=== PATIENT | female | born 1970 | race Two or more races ===

== ENCOUNTER 2018-09-11 07:25 | Inpatient (IN) | payer OTHER ==
[2018-09-11] MEDS: DEXTROSE 5%-LACTATED RINGERS 1,000 ML IV SCH ×2 (08:30→18:15)
[2018-09-11 08:35] VITALS: BMI 31.1
[2018-09-11] MEDS ORDERED: DINOPROSTONE 10 MG VAGINAL SUPPOSITORY VG ONE ×2 (08:46→09:00)
--- NOTE | 2018-09-11 08:53 | HP ---
Past Medical History - Primary Care Physician PCP:: Maico Celis - Admission Chief Complaint: 47yo P1 with at EGA 39w6d admitted for labor indxn. History of Present Illness: complicated by AMA IVF History Source: Patient, Medical Record Limitations to Obtaining History: No Limitations - Past Medical History CAD SPECIALIST: No: Alzheimer's, CVA, Dementia, Migraine, Multiple Sclerosis, Peripheral Neuropathy, Parkinson's, Seizure, Syncope, TIA, Vertigo, Other Cardiovascular: No: AFIB, Aneurysm, Aortic Insufficiency, Aortic Stenosis, CAD, CHF, Deep Vein Thrombosis, HTN, Hyperlipdemia, OK, Mitral Insufficiency, Mitral Stenosis, Murmur, Pulmonary Hypertension, Other Pulmonary: Yes: Other (emphysema) Gastrointestinal: No: Ascites, Cancer, Constipation, Crohn's Disease, Diverticulitis, Diverticulosis, Esophageal Varices, Gastritis, GERD, GI Bleed, Hemorrhoids, Hiatal Hernia, Inflamatory Bowel Disease, Irritable Bowel Disease, Pancreatitis, Peptic Ulcer Disease, Ulcerative Colitis, Other Hepatobiliary: No: Cirrhosis, Cholelithiasis, Cholecystitis, Choledocholithiasis , Hepatitis A, Hepatitis B, Hepatitis C, Other Renal/: No: Renal Failure, Renal Inusuff, BPH, Cancer, Hematuria, Hemodialysis , Neurogenic Bladder, Renal Calculi, UTI, Other Reproductive: No: Ectopic , Endometriosis, Fibroids, PID, Polycystic Ovary Syndrome, Postmenopausal, Other ...: 3 ...Para: 1 ...Term: 1 () ...: 0 ...Spon : 1 ...Induced : 0 ...EDC by Jarono: 09/12/18 Heme/Onc: No: Anemia, B12 Deficiency, Bleeding Disorder, Cancer, Current Chemotherapy, Current Radiation Therapy, Hemochromatosis, Hypercoaguable State, Myeloproliferative Synd, Sickle Cell Disease, Sickle Cell Trait, Thrombocytopenia, Other Infectious Disease: No: AIDS, C-Diff, Herpes Zoster, HIV, MRSA, STD's, Tuberculosis, VREF, Other Psych: No: Addictions, Anxiety, Bipolar, Depression, Panic, Psychosis, Schizophrenia, Other Musculoskeletal: No: Bursitis, Chronic low back pain, Hemiparesis, Hemiplegia, Osteoarthritis, Paraplegia, Other Rheumatology: No: Fibromyalgia, Gout, Lupus, Rheumatoid Arthritis, Sarcoidosis, Vasculitis, Other ENT: No: Allergic Rhinitis, Sinusitis, Other Endocrine: Yes: Other (elevated cholesterol) - Past Surgical History Past Surgical History: Yes: None Hx Myomectomy: No Hx Transabdominal Cerclage: No - Smoking History Smoking history: Former smoker Have you smoked in the past 12 months: No - Alcohol/Substance Use Hx Alcohol Use: No Home Medications - Allergies Allergies/Adverse Reactions: Allergies Allergy/AdvReac Type Severity Reaction Status Date / Time No Known Allergies Allergy Verified 09/11/18 07:57 - Home Medications Home Medications: Ambulatory Orders Vits96/Iron Fum/Folic [ Tablet] 1 each PO DAILY 09/11/18 Family Disease History - Family Disease History Family Disease History: Heart Disease: Brother, CA: Sister (cervical), Other: Father (HTN, brain tumor, lymphoma), Mother (HTN) Review of Systems Findings/Remarks: Well appearing - Review of Systems Constitutional: reports: No Symptoms Eyes: reports: No Symptoms HENT: reports: No Symptoms Neck: reports: No Symptoms Cardiovascular: reports: No Symptoms Respiratory: reports: No Symptoms Gastrointestinal: reports: No Symptoms Genitourinary: reports: No Symptoms Breasts: reports: No Symptoms Reported Musculoskeletal: reports: No Symptoms Integumentary: reports: No Symptoms Neurological: reports: No Symptoms Endocrine: reports: No Symptoms Hematology/Lymphatic: reports: No Symptoms Psychiatric: reports: No Symptoms Pain Intensity: 0 Physical Exam - Maternity Vital Signs: Vital Signs Temperature 97.9 F 09/11/18 08:00 Pulse Rate 66 09/11/18 08:00 Respiratory Rate 18 09/11/18 08:00 Blood Pressure 146/87 09/11/18 08:00 O2 Sat by Pulse Oximetry (%) Constitutional: Yes: Well Nourished, No Distress, Calm Eyes: Yes: WNL, Conjunctiva Clear HENT: Yes: WNL, Atraumatic, Normocephalic Neck: Yes: WNL, Supple, Trachea Midline Cardiovascular: Yes: WNL, Regular Rate and Rhythm Lungs: Clear to auscultation, Normal air movement Breast(s): Yes: WNL - Abdominal Exam/OB Fundal Height: 40 Number of Fetuses: Single Presentation: Vertex Contractions: Yes Regularity: Irregular Intensity: Unaware Monitor Mode: External Heart Rate (range): 135 Heart Rate Location: Midline Category: I Accelerations: Uniform Decelerations: None - Vaginal Exam/OB Dilatation (cm): 2 Effacement (%): 50 Amniotic Membrane Status: Intact Presentation: Vertex/Position Station: -3 (Gynecoid pelvimetry, EFW 3200gm) - Physical Exam Musculoskeletal: Yes: WNL Extremities: Yes: WNL Edema: Yes Edema: LLE: Trace, RLE: Trace Integumentary: Yes: WNL Deep Tendon Reflex Grade: Normal +2 ...Motor Strength: WNL Psychiatric: Yes: WNL, Alert, Oriented Hemorrhage Risk Assessment - Risk Factors Medium Risk Factors: Yes: None High Risk Factors: Yes: None Risk Score: 1 Risk Level: Medium Risk Imaging - Results Ultrasound: Report Reviewed Assessment/Plan 47yo P1 with at EGA 39w6d admitted for labor indxn. Pt is not in labor. Fetus with Category I tracing. Adequate gynecoid pelvimetry on exam. We had long discussion re: risks, benefits, and alternatives of labor induction. I explained the options of expectant management awaiting spontaneous labor, induction of labor, and elective section. The risks of uterine tachysystole, distress, uterine rupture, need for emergency C/S, hemorrhage, infection, scarring, etc. were discussed. We also discussed the risks of meconium aspiration, shoulder dystocia, and anesthesia options. The pt requested to proceed with induction. We discussed the alternative methods of induction with Cervidil, Cytotec, Folley ballon, and pitocin. The pt prefers Cervidil followed by pitocin, if needed.
[2018-09-11] MEDS ORDERED: AMPICILLIN - 2 GM in SODIUM CHLORIDE 100 ML IVPB ONE (09:00)
[2018-09-11] MEDS ORDERED: AMPICILLIN SODIUM 2 GM VIAL ONE ×2 (09:05→16:34)
[2018-09-11 09:18] LABS: BASO % 0.5 % (0-2.0); EOS % 2.2 % (0-4.5); HEMATOCRIT 31.4 % (32.4-45.2); HEMOGLOBIN 10.9 GM/dL (10.7-15.3); LYMPH % 17.8 % (8-40); MCH 31.5 pg (25.7-33.7); MCHC 34.5 g/dl (32.0-36.0); MEAN CELL VOLUME 91.2 fl (80-96); MEAN PLT VOLUME 8.5 fl (7.5-11.1); MONO % 5.8 % (3.8-10.2); NEUT % 73.7 % (42.8-82.8); PLATELET COUNT 223 K/MM3 (134-434); RBC 3.44 M/mm3 (3.60-5.2); RDW 13.8 % (11.6-15.6); WHITE BLOOD COUNT 9.3 K/mm3 (4.0-10.0)
[2018-09-11 09:29] LABS: INR 0.93 (0.83-1.09)
[2018-09-11 09:32] LABS: ACTIVATED PTT 25.7 SECONDS (25.2-36.5)
[2018-09-11 09:49] LABS: GAMMA GLUTAMYL TRANSPEPTIDASE 13 U/L (5-85); SGOT/AST 13 U/L (15-37); SGPT/ALT 14 U/L (13-61)
[2018-09-11 09:52] LABS: BLOOD UREA NITROGEN 8.8 mg/dL (7-18); CREATININE 0.8 mg/dL (0.55-1.3); URIC ACID 5.5 mg/dL (2.6-7.2)
[2018-09-11 11:48] LABS: HYALINE CASTS 1 /lpf (0-8); PH,URINE 7.5 (5.0-8.0); URINE APPEARANCE CLEAR; URINE BACTERIA 331.8 /hpf (NEGATIVE); URINE BILIRUBIN NEGATIVE (NEGATIVE); URINE COLOR YELLOW; URINE GLUCOSE (UA) NEGATIVE (NEGATIVE); URINE KETONE NEGATIVE (NEGATIVE); URINE LEUK ESTERASE 2+ (NEGATIVE); URINE NITRITE NEGATIVE (NEGATIVE); URINE PROTEIN NEGATIVE (NEGATIVE); URINE RBC 1 /hpf (0-4); URINE UROBILINOGEN 0.2 mg/dL (0.2-1.0); URINE WBC 5 /hpf (0-5)
[2018-09-11] MEDS ORDERED: AMPICILLIN SODIUM 1 GM VIAL ONE ×2 (12:07→20:44)
[2018-09-11] MEDS: AMPICILLIN - 1 GM in SODIUM CHLORIDE 100 ML IVPB SCH ×3 (13:00→20:45)
[2018-09-11] MEDS ORDERED: BUTORPHANOL TARTRATE 1 MG/ML VIAL IVPB ONE (16:13)
[2018-09-11] MEDS ORDERED: PROMETHAZINE HCL 25 MG/1 ML VIAL IVPB ONE (16:13)
--- NOTE | 2018-09-11 16:40 | PN ---
Ante-Partal Exam - Subjective Subjective: Pt states contractions back to back but not picked up on monitor. Vital Signs: Vital Signs Temperature 98.1 F 09/11/18 13:16 Pulse Rate 75 09/11/18 16:00 Respiratory Rate 20 09/11/18 16:00 Blood Pressure 151/75 09/11/18 16:00 O2 Sat by Pulse Oximetry (%) Bleeding: No Headache: No Visual changes: No Right upper quadrant pain: No Pain (scale 1-10): 7 - Contractions Contractions: Yes Regularity: Irregular Intensity: Mild/Mod Monitor Mode: External - Exam during Labor Heart Rate: 135 Variability: Moderate Heart Rate Location: Midline Category: I Monitor Accelerations: Present Monitor Decelerations: None Exam: Vaginal Dilatation (cm): 3 Effacement (%): 50 Amniotic Membrane Status: Intact Presentation: Vertex Station: -3 - Intrapartum Hemorrhage Risk Medium Risk Factors: None High Risk Factors: None Risk Score: 0 Risk Level: Low Risk - Assessment/Plan Assessment/Plan: Pt with frequent contractions on Cervidil that were not picked up on monitor. Cervix dilated to 3cm and Cervidil was removed at 4pm. Fetus with Category I tracing. Plan to monitor and AROM.
--- NOTE | 2018-09-11 17:50 | PN ---
Ante-Partal Exam - Subjective Subjective: Contractions have slowed down. Vital Signs: Vital Signs Temperature 98.3 F 09/11/18 17:00 Pulse Rate 58 L 09/11/18 17:00 Respiratory Rate 20 09/11/18 17:00 Blood Pressure 133/82 09/11/18 17:00 O2 Sat by Pulse Oximetry (%) Bleeding: No Headache: No Visual changes: No Right upper quadrant pain: No Pain (scale 1-10): 8 - Contractions Contractions: Yes Regularity: Irregular Intensity: Mild/Mod Monitor Mode: External - Exam during Labor Heart Rate: 135 Variability: Moderate Heart Rate Location: Midline Category: I Monitor Accelerations: Present Monitor Decelerations: None Exam: Vaginal Dilatation (cm): 3 Effacement (%): 50 Amniotic Membrane Status: Ruptured (AROM) Amniotic Fluid: Clear Presentation: Vertex Station: -3 - Intrapartum Hemorrhage Risk Medium Risk Factors: None High Risk Factors: None Risk Score: 0 Risk Level: Low Risk - Assessment/Plan Assessment/Plan: Fetus with Category I tracing. Labor in latent phase. AROM done. Plan to start pitocin
[2018-09-11] MEDS ORDERED: BUTORPHANOL TARTRATE 1 MG/ML VIAL ONE ×2 (17:52)
[2018-09-11] MEDS ORDERED: OXYTOCIN 20 UNITS in 0.9% NS 20 UNIT/1,000 ML INFUS.BAG IV ONE ×2 (17:53→20:29)
[2018-09-11] MEDS ORDERED: PROMETHAZINE HCL 25 MG/1 ML VIAL ONE (17:53)
[2018-09-11] MEDS ORDERED: OXYTOCIN 30 UNITS in 0.9% NS 30 UNIT/500 ML INFUS.BAG IVPB SCH (18:00)
--- NOTE | 2018-09-11 18:55 | PN ---
Ante-Partal Exam - Subjective Subjective: BP 177/75, prior BP also elevated. Vital Signs: Vital Signs Temperature 98.3 F 09/11/18 17:00 Pulse Rate 58 L 09/11/18 17:00 Respiratory Rate 20 09/11/18 17:00 Blood Pressure 146/74 09/11/18 18:31 O2 Sat by Pulse Oximetry (%) Bleeding: No Headache: No Visual changes: No Right upper quadrant pain: No Pain (scale 1-10): 7 - Contractions Contractions: Yes Regularity: Irregular Intensity: Mild/Mod Monitor Mode: External - Exam during Labor Heart Rate: 135 Variability: Absent Heart Rate Location: Midline Category: I Monitor Accelerations: Absent (s/p Stadol) Monitor Decelerations: None Amniotic Membrane Status: Leaking Amniotic Fluid: Clear - Intrapartum Hemorrhage Risk Medium Risk Factors: Prolonged Oxytocin Use >24hrs High Risk Factors: None Risk Score: 1 Risk Level: Medium Risk - Assessment/Plan Assessment/Plan: persistently elevated BP c/w PEC, possibly severe. Plan to start MgSO4
[2018-09-11] MEDS ORDERED: MAGNESIUM 4GM/H20 - 4 GM/100 ML IVPB IVPB ONE ×2 (19:00→19:19)
[2018-09-11] MEDS ORDERED: MAGNESIUM SULFATE 20GM/500ML - 20 GM/500 ML INFUS.BAG ONE (19:19)
[2018-09-11] MEDS: MAGNESIUM SULFATE 20GM/500ML - 20 GM/500 ML INFUS.BAG IVPB SCH (20:03)
[2018-09-11] MEDS ORDERED: FENTANYL/BUPIVACAINE/NS/PF - PCEA - 50 ML DISP.SYRIN EP ONE (20:15)
[2018-09-11] MEDS ORDERED: LIDOCAINE HCL 1% PRESERVATIVE FREE - 30ML VIAL ONE (20:29)
[2018-09-11] MEDS ORDERED: FENTANYL/BUPIVACAINE/NS/PF - PCEA - 50 ML DISP.SYRIN EP SCH (20:30)
[2018-09-11] MEDS ORDERED: LABETALOL HCL 5 MG/1 ML (100MG/20 ML VIAL) IVPB ONE (22:36)
--- NOTE | 2018-09-11 22:42 | PN ---
Ante-Partal Exam - Subjective Subjective: Pt is c/o pain and pelvic pressure. The epidural syringe wore off. Vital Signs: Vital Signs Temperature 98.3 F 09/11/18 22:00 Pulse Rate 58 L 09/11/18 17:00 Respiratory Rate 20 09/11/18 17:00 Blood Pressure 146/74 09/11/18 18:31 O2 Sat by Pulse Oximetry (%) BP 189/96 Bleeding: No Headache: No Visual changes: No Right upper quadrant pain: No Pain (scale 1-10): 9 - Contractions Contractions: Yes Intensity: Moderate Monitor Mode: External - Exam during Labor Heart Rate: 135 Variability: Moderate Heart Rate Location: Midline Category: II Monitor Accelerations: Present Monitor Decelerations: Variable Exam: Vaginal Dilatation (cm): 10 Effacement (%): 100 Amniotic Membrane Status: Leaking Amniotic Fluid: Clear Presentation: Vertex Station: +1 - Intrapartum Hemorrhage Risk Medium Risk Factors: None High Risk Factors: None Risk Score: 0 Risk Level: Low Risk - Assessment/Plan Assessment/Plan: Pt is in second stage of labor. She has not started pushing yet. The BP 189/96. Plan to attempt to slowly reduce the BP with Labetalol IVPB Will start pushing. Fetus with Category 2 tracing. However, moderate variability, and only occasional variable decels.
[2018-09-11] MEDS ORDERED: CARBOPROST TROMETHAMINE 250 MCG/ML AMPUL IM ONE (23:31)
[2018-09-11] MEDS ORDERED: ELECTROLYTE-148 SOLN 1,000 ML IV SCH (23:45)
[2018-09-11] MEDS ORDERED: OXYTOCIN 20 UNITS in 0.9% NS 20 UNIT/1,000 ML INFUS.BAG IV SCH (23:45)
[2018-09-11] MEDS ORDERED: BISACODYL 10 MG SUPP.RECT RC PRN (23:51)
[2018-09-11] MEDS ORDERED: oxyCODONE HCL 5 MG TABLET PO PRN (23:51)
[2018-09-11] MEDS ORDERED: WITCH HAZEL 50% (TUCKS) 40 PAD/JAR PAD TP PRN (23:51)
[2018-09-11] MEDS ORDERED: BENZOCAINE 20% 57 GM BOTTLE TP PRN (23:51)
[2018-09-11] MEDS ORDERED: METHYLERGONOVINE MALEATE 0.2 MG/1 ML AMP IM PRN (23:51)
[2018-09-11] MEDS ORDERED: BENZOCAINE 28 GM HEMORRHOIDAL OINTMENT TP PRN (23:51)
[2018-09-12] MEDS: AMPICILLIN - 1 GM in SODIUM CHLORIDE 100 ML IVPB SCH ×2 (01:15→05:15)
[2018-09-12] MEDS ORDERED: MAGNESIUM SULFATE 20GM/500ML - 20 GM/500 ML INFUS.BAG ONE ×2 (05:33→18:07)
[2018-09-12] MEDS ORDERED: NALOXONE HCL 0.4 MG/ML VIAL IVPUSH PRN (06:28)
[2018-09-12 06:34] LABS: BASO % 0.3 % (0-2.0); EOS % 0.1 % (0-4.5); HEMATOCRIT 28.5 % (32.4-45.2); HEMOGLOBIN 9.7 GM/dL (10.7-15.3); LYMPH % 8.2 % (8-40); MCH 31.3 pg (25.7-33.7); MCHC 34.2 g/dl (32.0-36.0); MEAN CELL VOLUME 91.6 fl (80-96); MEAN PLT VOLUME 8.3 fl (7.5-11.1); MONO % 4.9 % (3.8-10.2); NEUT % 86.5 % (42.8-82.8); PLATELET COUNT 237 K/MM3 (134-434); RBC 3.11 M/mm3 (3.60-5.2); RDW 13.6 % (11.6-15.6); WHITE BLOOD COUNT 21.1 K/mm3 (4.0-10.0)
[2018-09-12] MEDS ORDERED: OXYTOCIN 20 UNITS in 0.9% NS 20 UNIT/1,000 ML INFUS.BAG IV ONE (07:32)
[2018-09-12] MEDS: ACETAMINOPHEN 325 MG TABLET (FP) PO PRN ×4 (07:37→21:35)
[2018-09-12] MEDS ORDERED: ACETAMINOPHEN 325 MG TABLET (FP) ONE ×4 (07:38→21:34)
[2018-09-12] MEDS: OXYTOCIN 20 UNITS in 0.9% NS 20 UNIT/1,000 ML INFUS.BAG IV SCH ×2 (07:48)
--- NOTE | 2018-09-12 07:57 | PN ---
Post Progress Note - Subjective Subjective: Patient reports mild headache developed about 1 hour ago No nausea or vomiting Denies change in vision/scotomata, right upper quadrant pain. Reports tolerating oral intake without nausea or vomiting. Ambulating without dizziness. Denies fevers or chills. Pain well controlled with oral pain medication. Passing flatus. Post Day: 1 Type of Delivery: Vital Signs: Vital Signs Temperature 98.2 F 09/12/18 06:00 Pulse Rate 67 09/12/18 06:00 Respiratory Rate 20 09/12/18 06:00 Blood Pressure 151/88 09/12/18 06:00 O2 Sat by Pulse Oximetry (%) 98 09/12/18 00:05 Breast Exam: Yes: Soft Uterus: Yes: Fundus Firm Abdomen/GI: Yes: Abdomen soft, Passing flatus. No: Abdominal Distention, Tender Lochia: Yes: Rubra Lochia, amount: Moderate Extremities: Yes: Calves non-tender, Edema (trace) Activity: Ambulating - Labs Labs: CBC WBC 21.1 K/mm3 (4.0-10.0) H 09/12/18 05:30 RBC 3.11 M/mm3 (3.60-5.2) L 09/12/18 05:30 Hgb 9.7 GM/dL (10.7-15.3) L 09/12/18 05:30 Hct 28.5 % (32.4-45.2) L 09/12/18 05:30 MCV 91.6 fl (80-96) 09/12/18 05:30 MCH 31.3 pg (25.7-33.7) 09/12/18 05:30 MCHC 34.2 g/dl (32.0-36.0) 09/12/18 05:30 RDW 13.6 % (11.6-15.6) 09/12/18 05:30 Plt Count 237 K/MM3 (134-434) 09/12/18 05:30 MPV 8.3 fl (7.5-11.1) 09/12/18 05:30 Absolute Neuts (auto) 18.3 K/mm3 (1.5-8.0) H 09/12/18 05:30 Neutrophils % 86.5 % (42.8-82.8) H 09/12/18 05:30 Lymphocytes % 8.2 % (8-40) D 09/12/18 05:30 Monocytes % 4.9 % (3.8-10.2) 09/12/18 05:30 Eosinophils % 0.1 % (0-4.5) D 09/12/18 05:30 Basophils % 0.3 % (0-2.0) 09/12/18 05:30 Nucleated RBC % 0 % (0-0) 09/12/18 05:30 Retic Count 1.73 % (0.5-1.5) H 09/11/18 08:51 Haptoglobin 122 mg/dL (34-200) 09/11/18 08:51 Assessment/Plan 47 yo PPD # 1 s/p , preeclampsia 1. Continued elevated BPs Reports mild headache, tylenol given BPs not requirng pushes at this time Will ask for renal consult today Will continue magnesium x24 hours post delivery. 2. Rh positive, no rhogam indicated 3. CBC with mild anemia, asymptomatic at this time Will monitor for signs of anemai 4. Will continue routine care
[2018-09-12] MEDS ORDERED: PRENATAL VITAMINS W/ FOLIC ACID TABLET (FP) PO SCH (10:00)
--- NOTE | 2018-09-12 11:54 | CONSULT ---
Consult - text type - Consultation Consultation Note: Renal consult for hypertension This is a 47 year old woman with no significant past medical history that presented at 39 weeks for induction of labor complicated by hypertension. S/p vaginal delivery yesterday. Pt seen in L&R. Has a headache. No chest pain or chest tightness. Pt denies any history of hypertension. Was not told that her BP was high during the pre-bandar visits. Denies having any protein in her urine. PMhx: as above Allergies: NKDA Family Hx: Brothers and Mother with hypertension social Hx: No T/A/D ROS: as per HPI Home Medications Medication Instructions Recorded Vits96/Iron Fum/Folic 1 each PO DAILY 09/11/18 [ Tablet] Vital Signs Temperature 98.2 F 09/12/18 10:00 Pulse Rate 81 09/12/18 11:00 Respiratory Rate 20 09/12/18 11:00 Blood Pressure 143/89 09/12/18 11:00 O2 Sat by Pulse Oximetry (%) 98 09/12/18 00:05 Intake & Output 09/09/18 09/10/18 09/11/18 09/12/18 23:59 23:59 23:59 23:59 Intake Total 1934 701 Output Total 550 3650 Balance 1384 -2949 Weight 78.471 kg NAD trace edema in LE CBC, BMP 09/12/18 05:30 09/11/18 08:28 Current Medications Acetaminophen (Tylenol -) 650 mg PO Q3H PRN PRN Reason: PAIN Last Admin: 09/12/18 07:37 Dose: 650 mg Benzocaine (Americaine 20% Telephone -) 1 spray TP PRN PRN PRN Reason: PAIN Benzocaine (Americaine Ointment -) 1 applic TP PRN PRN PRN Reason: PAIN Bisacodyl (Dulcolax Suppository -) 10 mg RC PRN PRN PRN Reason: CONSTIPATION Dextrose/Lactated Ringer's (D5-Lr -) 1,000 mls @ 125 mls/hr IV ASDIR KEVIN Last Admin: 09/11/18 18:15 Dose: 125 mls/hr Magnesium Sulfate (Magnesium Sulfate 20gm/500ml -) 20 gm in 500 mls @ 50 mls/ hr IVPB ASDIR KEVIN Last Admin: 09/11/18 20:03 Dose: 50 mls/hr Parenteral Electrolytes (Plasma-Lyte 148 -) 1,000 mls @ 42 mls/hr IV [facility] Last Admin: 09/11/18 23:45 Dose: 42 mls/hr Oxytocin/Sodium Chloride (Normal Saline+20 Units Oxytocin -) 20 unit in 1,000 mls @ 75 mls/hr IV [facility] Last Admin: 09/12/18 07:48 Dose: 75 mls/hr Methylergonovine Maleate (Methergine Injection -) 0.2 mg IM Q4H PRN PRN Reason: EXCESSIVE BLEEDING (L&D) Oxycodone HCl (Roxicodone -) 5 mg PO Q6H PRN PRN Reason: PAIN Multivit/Folic Acid/Iron ( Vitamins (Sjr) -) 1 tab PO DAILY KEVIN Senna/Docusate Sodium (Pericolace -) 2 tablet PO HS PRN PRN Reason: CONSTIPATION Witch Patricia/Glycerin (Tucks Pads -) 1 pad TP PRN PRN PRN Reason: PAIN 47 year old woman with no significant past medical history that presented at 39 weeks for induction of labor complicated by hypertension. # hypertension secondary to preeclampsia vs. PIH vs. underlying essential hypertension # s/p vaginal delivery #Anemia Check urine for protein to creatinine ratio Start Labetalol 200mg Q6h PRN for SBP > 150/90 Low salt diet Avoid NSAIDs for pain control Continue Mg sulfate for 24 hours as per OB protocol Taper off IVF if possible Thank you Will follow Valentín Gabriel DO
[2018-09-12 12:08] LABS: ANISOCYTOSIS 1+; MACROCYTOSIS 0; OVALOCYTE 1+; PLATELET ESTIMATE NORMAL
[2018-09-12] MEDS ORDERED: LABETALOL HCL 200 MG TABLET (FP) PO PRN (12:10)
[2018-09-12] MEDS ORDERED: LABETALOL HCL 200 MG TABLET (FP) ONE (15:28)
[2018-09-12 17:09] LABS: RATIO URIN PROTEIN/URIN CREAT 0.71 MG/DL
[2018-09-12] MEDS: MAGNESIUM SULFATE 20GM/500ML - 20 GM/500 ML INFUS.BAG IVPB SCH ×2 (18:15→19:30)
[2018-09-12] MEDS: DEXTROSE 5%-LACTATED RINGERS 1,000 ML IV SCH (19:00)
--- NOTE | 2018-09-12 21:20 | PN ---
Delivery - Delivery Vaginal Delivery: No Problems, Spontaneous Type of Anesthesia: Local, Spinal Episiotomy/Laceration: Vaginal Extension/lac, 2nd degree EBL (cc): 1,000 Delivery, Single - Stages of Labor Date 1st Stage Initiatied: 09/11/18 Time 1st Stage Initiated: 13:00 Date 2nd Stage Initiated: 09/11/18 Time 2nd Stage Initiated: 22:45 Date of Delivery: 09/11/18 Time of Delivery: 23:12 Date Placenta Delivered: 09/11/18 Time Placenta Delivered: 23:20 Placenta: Yes: Spontaneous, Normal Configuration - Condition of Motor Setter/Wire Stretcher Present: Yes Name: Christine Barakat Gender: Female Weight: 3.317 kg Position: Right, OA Total Hours ROM (Hrs/Mins): 5H35M - 1 Minute Total Score: 9 5 Minutes Total Score: 9 - [place] Feeding Plan Initial Plan: Elected not to breastfeed exclusively throughout hospitalization Benefits of Exclusively reinforced: Yes Remarks - Remarks Remarks: Uterine massage done to control for PPH due to uterine atony. Pt responded well. Hemabate was given and good hemostasis was noted.
[2018-09-12] MEDS ORDERED: SENNOSIDES/DOCUSATE COMBO (SENNA PLUS) TABLET (UD) PO PRN (22:00)
[2018-09-13] MEDS: ACETAMINOPHEN 325 MG TABLET (FP) PO PRN ×2 (03:18→07:43)
--- NOTE | 2018-09-13 06:09 | PN ---
Progress Note (short form) - Note Progress Note: ppd 1 s/p PIH no headache or blurred vision ,no excess vaginal bleeding Current Medications Generic Name Dose Route Start Last Admin Trade Name Longq PRN Reason Stop Dose Admin Acetaminophen 650 mg 09/11/18 23:51 09/13/18 03:18 Tylenol - PO 650 mg Q3H PRN Administration PAIN Benzocaine 1 spray 09/11/18 23:51 Americaine 20% [place] - TP PRN PRN PAIN Benzocaine 1 applic 09/11/18 23:51 Americaine Ointment - TP PRN PRN PAIN Bisacodyl 10 mg 09/11/18 23:51 Dulcolax Suppository - RC PRN PRN CONSTIPATION Dextrose/Lactated Ringer's 1,000 mls @ 125 mls/hr 09/11/18 08:30 09/12/18 19: 00 D5-Lr - IV Not Given ASDIR KEVIN Magnesium Sulfate 20 gm in 500 mls @ 25 mls/hr 09/11/18 19:30 09/12/18 19:30 Magnesium Sulfate 20gm/500ml - IVPB Not Given ASDIR KEVIN 1 GM/HR Parenteral Electrolytes 1,000 mls @ 42 mls/hr 09/11/18 23:45 09/11/18 23:45 Plasma-Lyte 148 - IV 42 mls/hr ASDIR KEVIN Administration Oxytocin/Sodium Chloride 20 unit in 1,000 mls @ 75 mls/hr 09/12/18 07:00 03/02 07:48 Normal Saline+20 Units Oxytocin - IV 75 mls/hr ASDIR KEVIN Administration Labetalol HCl 200 mg 09/12/18 12:10 09/12/18 15:30 Normodyne - PO 200 mg Q6H PRN Administration HYPERTENSION Methylergonovine Maleate 0.2 mg 09/11/18 23:51 Methergine Injection - IM Q4H PRN EXCESSIVE BLEEDING (L&D) Oxycodone HCl 5 mg 09/11/18 23:51 Roxicodone - PO Q6H PRN PAIN Multivit/Folic Acid/Iron 1 tab 09/12/18 10:00 Vitamins (Sjr) - PO DAILY KEVIN Senna/Docusate Sodium 2 tablet 09/12/18 22:00 Pericolace - PO HS PRN CONSTIPATION Witch Patricia/Glycerin 1 pad 09/11/18 23:51 Tucks Pads - TP PRN PRN PAIN Last Vital Signs Temp Pulse Resp BP Pulse Ox 97.8 F 68 20 119/65 98 09/12/18 21:50 09/13/18 03:21 09/13/18 03:21 09/13/18 03:21 09/12/18 00:05 CBC, BMP 09/12/18 05:30 09/11/18 08:28 abdomen soft, uterus firm, non tender ,no cva lochia mild no calf tenderness plan ambulate ,cbc monitor BP
--- NOTE | 2018-09-13 13:20 | PN ---
Progress Note (short form) - Note Progress Note: Renal follow up for hypertension Pt seen and examined at the bedside awake and alert offers no acute complaints headaches have resolved no sob, cp, abd pain Vital Signs Temperature 97.8 F 09/12/18 21:50 Pulse Rate 62 09/13/18 06:11 Respiratory Rate 20 09/13/18 06:11 Blood Pressure 109/65 09/13/18 06:11 O2 Sat by Pulse Oximetry (%) 98 09/12/18 00:05 Intake & Output 09/10/18 09/11/18 09/12/18 09/13/18 23:59 23:59 23:59 23:59 Intake Total 1934 3670 Output Total 550 8250 200 Balance 1384 -4580 -200 Weight 78.471 kg NAD trace edema in LE CBC, BMP 09/12/18 05:30 09/11/18 08:28 Current Medications Acetaminophen (Tylenol -) 650 mg PO Q3H PRN PRN Reason: PAIN Last Admin: 09/12/18 07:37 Dose: 650 mg Benzocaine (Americaine 20% [place] -) 1 spray TP PRN PRN PRN Reason: PAIN Benzocaine (Americaine Ointment -) 1 applic TP PRN PRN PRN Reason: PAIN Bisacodyl (Dulcolax Suppository -) 10 mg RC PRN PRN PRN Reason: CONSTIPATION Dextrose/Lactated Ringer's (D5-Lr -) 1,000 mls @ 125 mls/hr IV [facility] Last Admin: 09/11/18 18:15 Dose: 125 mls/hr Magnesium Sulfate (Magnesium Sulfate 20gm/500ml -) 20 gm in 500 mls @ 50 mls/ hr IVPB [facility] Last Admin: 09/11/18 20:03 Dose: 50 mls/hr Parenteral Electrolytes (Plasma-Lyte 148 -) 1,000 mls @ 42 mls/hr [facility] Last Admin: 09/11/18 23:45 Dose: 42 mls/hr Oxytocin/Sodium Chloride (Normal Saline+20 Units Oxytocin -) 20 unit in 1,000 mls @ 75 mls/hr IV [facility] Last Admin: 09/12/18 07:48 Dose: 75 mls/hr Methylergonovine Maleate (Methergine Injection -) 0.2 mg IM Q4H PRN PRN Reason: EXCESSIVE BLEEDING (L&D) Oxycodone HCl (Roxicodone -) 5 mg PO Q6H PRN PRN Reason: PAIN Multivit/Folic Acid/Iron ( Vitamins (Sjr) -) 1 tab PO DAILY KEVIN Senna/Docusate Sodium (Pericolace -) 2 tablet PO HS PRN PRN Reason: CONSTIPATION Witch Patricia/Glycerin (Tucks Pads -) 1 pad TP PRN PRN PRN Reason: PAIN 47 year old woman with no significant past medical history that presented at 39 weeks for induction of labor complicated by hypertension. # hypertension secondary PIH/pain/IV/mild preeclampsia without evidence of HELLP syndrome # s/p vaginal delivery #Anemia BP is moderated off mediations (did not receive labetalol since yesterday afternoon) stable for discharge off antihypertensives should follow up with primary doc and OB within a week for BP check advised to maintain a low salt diet pt with mild proteinura with UPCR of 0.7, should have repeated UPCR as an outpatient Thank you Valentín Gabriel DO
[2018-09-13 13:21] VITALS: BP 131/81; PULSE 74; TEMP 97.9
--- NOTE | 2018-09-18 17:20 | PATH ---
Surgical Pathology Report Patient Name: SOFI ROY [facility]. Rec. #: [id number] /Age/Gender: 1970 (Age: 47) / F Account: [id number] Location: [facility] OBS/ECHO VASC TECH Taken: 09/11/2018 Received: 09/12/2018 Reported: 09/18/2018 Physicians: Maico Celis M.D. Specimen(s) Received PLACENTA Clinical History , 39.6 weeks' gestation, IVF donor/egg donor, hypertension-treated with magnesium sulfate Final Diagnosis PLACENTA, DELIVERY: 392 G THIRD TRIMESTER PLACENTA WITH TRIVASCULAR UMBILICAL CORD, FOCAL INTRAPARENCHYMAL INFARCT (~10 % OF PLACENTAL SURFACE) AND UNREMARKABLE PLACENTAL MEMBRANES. Electronically Signed Mari Tam M.D. Gross Description The specimen is received fresh labeled placenta and is a 392 a gram, 15.0 x 13.0 x 4.3 cm. placenta with attached membranes and umbilical cord. The attached membranes are trujillo, translucent with focal opacities and insert marginally. The umbilical cord measures 16 cm. in length and averages 0.9 cm. in diameter. The cord inserts eccentrically, 1 cm. to the nearest margin. No true knots or strictures are identified. Cut surface of the umbilical cord reveals 3 vessels. The surface is rehman-blue with minimal fibrin deposition and appropriate caliber vessels. The maternal surface is red-brown with focal defects. Sectioning reveals a 4.0 cm in greatest dimension trujillo, firm intraparenchymal lesion. The remaining placental parenchyma is red-brown and spongy. [employer] sections are submitted in three cassettes as follows: 1-membrane roll and umbilical cord; 2-section of lesion; 4-[id number] section of placenta. 09/17/2018 [facility]09/17/2018
== END 2018-09-13 15:15 | disposition home or self-care (01) | DRG 807 ==
LOC: JLDR 07:25 → J3W 09-12 21:50
PROVIDERS: ADMIT Obstetrics & Gynecology; ATTEND Obstetrics & Gynecology
PROC: 10E0XZZ Delivery of Products of Conception, External Approach (ICD-10-PCS; principal; 2018-09-11)
PROC: 0KQM0ZZ Repair Perineum Muscle, Open Approach (ICD-10-PCS; 2018-09-11)
PROC: 3E0P7VZ Introduction of Hormone into Female Reproductive, Via Natural or Artificial Opening (ICD-10-PCS; 2018-09-11)
PROC: 3E033VJ Introduction of Other Hormone into Peripheral Vein, Percutaneous Approach (ICD-10-PCS; 2018-09-11)
DX: O99.52 Diseases of the respiratory system complicating childbirth (principal); Z37.0 Single live birth; O16.5 Unspecified maternal hypertension, complicating the puerperium; O14.95 Unspecified pre-eclampsia, complicating the puerperium; O70.1 Second degree perineal laceration during delivery; O72.1 Other immediate postpartum hemorrhage; J43.9 Emphysema, unspecified; O76 Abnormality in fetal heart rate and rhythm complicating labor and delivery; O99.02 Anemia complicating childbirth; D64.9 Anemia, unspecified; O26.893 Other specified pregnancy related conditions, third trimester; E78.00 Pure hypercholesterolemia, unspecified; Z87.891 Personal history of nicotine dependence; Z3A.39 39 weeks gestation of pregnancy; Z82.49 Family history of ischemic heart disease and other diseases of the circulatory system
CPT/HCPCS: 36415; 36600; 59409; 80048; 81003; 82570; 82803; 82977; 83010; 83735; 84156; 84450; 84460; 84550; 85025; 85044; 85610; 85730; 86593; 86850; 86900; 86901; 88307-TC

== ENCOUNTER 2018-09-15 13:25 | Inpatient (IN) | payer OTHER ==
[2018-09-15 13:39] VITALS: BMI 30.6
--- NOTE | 2018-09-15 14:54 | PDOC ---
History of Present Illness - General Chief Complaint: Blood Pressure Problem Stated Complaint: HYPERTENSION Time Seen by Provider: 09/15/18 14:04 History Source: Patient Exam Limitations: No Limitations - History of Present Illness Initial Comments: Pt is a 47 yo F, , with no significant PMH, who presents with HTN after giving 09/10/2018. Pt denies HTN in the past and during . Pt states her BP elevated while she was giving and after the epidural. Pt was given PO labetalol inpatient, which improved the high BP, but was not on outpatient BP medications. Pt states she took her BP today and was 185/90 at home, and was told to come to the ER by OB team (Dr. Dyson). Pt also endorses b/l lower leg swelling which worsened last night. Pt denies any fevers/chills, headache, vision changes, syncope, chest pain, palpitations, SOB, orthopnea, nausea/vomiting, abdominal pain, urinary symptoms, or diarrhea/constipation. Allergies: NKDA OB: Vimal Social: Pt denies any cigarette, alcohol, or drug use. Pt denies any recent travel or sick contacts. Surgical: episiotomy repai in this . Family: no relevant history. 09/15/18 16:21 Past History - Travel Traveled outside of the country in the last 30 days: No Close contact w/someone who was outside of country & ill: No - Past Medical History Allergies/Adverse Reactions: Allergies Allergy/AdvReac Type Severity Reaction Status Date / Time No Known Allergies Allergy Verified 09/11/18 07:57 Home Medications: Ambulatory Orders Vits96/Iron Fum/Folic [ Tablet] 1 each PO DAILY 09/11/18 Asthma: No Cancer: No Cardiac Disorders: No COPD: No Diabetes: No Disorders: Yes (Pre eclampsia) HTN: No Seizures: No Thyroid Disease: No - Suicide/Smoking/Psychosocial Hx Smoking History: Never smoked Have you smoked in the past 12 months: No Hx Alcohol Use: No Drug/Substance Use Hx: No Hx Substance Use Treatment: No Review of Systems - Review of Systems Able to Perform ROS?: Yes Is the patient limited Lao proficient: No Constitutional: Yes: Weight Stable. No: Chills, Diaphoresis, Fever, Loss of Appetite, Malaise, Weakness HEENTM: No: Blurred Vision, Recent change in vision, Double Vision, Nose Congestion, Throat Pain Respiratory: No: Cough, Orthopnea, Shortness of Breath Cardiac (ROS): No: Chest Pain, Edema, Irregular Heart Rate, Lightheadedness, Palpitations, Syncope, Chest Tightness ABD/GI: No: Constipated, Diarrhea, Nausea, Poor Appetite, Poor Fluid Intake, Vomiting, Abdominal cramping : Yes: Burning (burning with urination when urine hits episiotomy site.). No : Dysuria, Frequency, Hematuria, Pain, Urgency Musculoskeletal: No: Back Pain, Joint Pain, Muscle Pain, Muscle Weakness Integumentary: No: Rash Neurological: No: Headache, Numbness, Weakness, Unsteady Gait, Dizziness Psychiatric: No: Sleep Pattern Change, Change in Appetite Endocrine: No: Increased Urine, Change in Weight Hematologic/Lymphatic: No: Anemia, Blood Clots, Easy Bleeding, Easy Bruising All Other Systems: Reviewed and Negative *Physical Exam - Vital Signs Last Vital Signs Temp Pulse Resp BP Pulse Ox 97.1 F L 70 20 188/78 H 95 09/15/18 13:36 09/15/18 13:36 09/15/18 13:36 09/15/18 13:36 09/15/18 13:36 - Physical Exam Comments: Hypertension (168/80 on exam), pt afebrile. Pt in NAD, overweight body habitus. Pt alert and oriented x3. mold tooler generally intact, muscular strength and sensation intact. No midline spinal tenderness, step-offs, or crepitus. Head normocephalic, atraumatic. Eyes PERRLA, EOMI. Oropharynx without erythema or exudates, no LAD b/l. No nasal congestion, hearing intact. Clear heart sounds, S1/S2, no JVD, or heart murmur. B/l pitting edema to mid- shins Clear lung sounds, no respiratory distress, wheezes, crackles, or accessory muscle use. No abdominal or CVA tenderness to palpation, no rebound, no guarding. No hepatosplenomegaly. Abdomen soft, non-distended, and with normoactive bowel sounds. Swelling to labia majora, well-healing episiotomy sutures without active erythema or drainage. Skin without jaundice or rash. 09/15/18 16:32 09/15/18 16:49 ED Treatment Course - LABORATORY CBC & Chemistry Diagram: 09/15/18 14:34 09/15/18 14:34 - ADDITIONAL ORDERS Additional order review: 09/15/18 14:34 RBC 2.52 L MCV 93.5 MCHC 34.0 RDW 13.8 MPV 7.5 Neutrophils % 67.0 D Lymphocytes % 23.6 D Monocytes % 5.2 Eosinophils % 3.6 D Basophils % 0.6 Medical Decision Making - Medical Decision Making Pt was seen at bedside, also will be seen by attending Dr. Moss. Pt is a 47 yo F, presenting with pre-eclampsia. Pt had delivery 5 days ago, and required PO labetalol in the OB unit. Pt was not on PO HTN medications outpatient. Pt denies end-organ symptoms (headache, vision changes, hematuria, chest pain), but has had worsening leg swelling. Will evaluate for HELLP, thyroid storm, CHF , hypoMag. Provided 200 mg PO labetalol for improvement of HTN. Will continue to reassess pt and monitor for symptomatic improvement. ECG: Sinus bradycardia (HR 50,LA 162, QRS 84, QTc 397). No TWIs or significant ST segment changes. No prior ECG. 09/15/18 16:53 CBC showed stable anemia not requiring transfusion CMP: rising AST/ALT (62/42 from , done 2 days ago). UA with proteinuria TSH WNL, BNP 400 BP improved only to 145/88, still meeting pre-eclampsia criteria. Pt admitted to Dr. Dyson, suggested ICU consult for Mg and frequent neuro checks. ICU consulted, at bedside to see pt. 09/15/18 16:58 Pt accepted to ICU for Magnesium drip. 09/15/18 17:17 *DC/Admit/Observation/Transfer Diagnosis at time of Disposition: Hypomagnesemia Preeclampsia Qualifiers: Trimester: unspecified trimester Qualified Code(s): O14.90 - Unspecified pre- eclampsia, unspecified trimester Edema Qualifiers: Edema type: localized Qualified Code(s): R60.0 - Localized edema - Discharge Dispostion Condition at time of disposition: Stable Decision to Admit order: Yes - Referrals Referrals: Maico Celis MD [Staff Physician] - - Patient Instructions - Post Discharge Activity
[2018-09-15 14:56] LABS: EPI CELLS 14.2 /HPF (0-5/HPF); HYALINE CASTS 58 /lpf (0-8); URINE APPEARANCE CLEAR; URINE BACTERIA 4.1 /hpf (NEGATIVE); URINE BILIRUBIN NEGATIVE (NEGATIVE); URINE COLOR ORANGE; URINE GLUCOSE (UA) NEGATIVE (NEGATIVE); URINE KETONE NEGATIVE (NEGATIVE); URINE LEUK ESTERASE 1+ (NEGATIVE); URINE NITRITE NEGATIVE (NEGATIVE); URINE PROTEIN 1+ (NEGATIVE); URINE RBC 271 /hpf (0-4); URINE UROBILINOGEN 0.2 mg/dL (0.2-1.0); URINE WBC 12 /hpf (0-5)
[2018-09-15 15:07] LABS: INR 0.87 (0.83-1.09); PROTHROMBIN TIME (PATIENT) 10.3 SEC (9.7-13.0)
[2018-09-15 15:10] LABS: WHITE BLOOD COUNT 9.1 K/mm3 (4.0-10.0)
[2018-09-15 15:11] LABS: BASO % 0.7 % (0-2.0); EOS % 3.6 % (0-4.5); HEMATOCRIT 23.8 % (32.4-45.2); LYMPH % 24.5 % (8-40); MCH 31.6 pg (25.7-33.7); MCHC 33.7 g/dl (32.0-36.0); MEAN CELL VOLUME 93.6 fl (80-96); MEAN PLT VOLUME 7.9 fl (7.5-11.1); MONO % 4.9 % (3.8-10.2); NEUT % 66.3 % (42.8-82.8); PLATELET COUNT 269 K/MM3 (134-434); RBC 2.54 M/mm3 (3.60-5.2); RDW 13.9 % (11.6-15.6)
[2018-09-15] MEDS ORDERED: LABETALOL HCL 200 MG TABLET (FP) PO ONE (15:17)
[2018-09-15 15:25] LABS: MAGNESIUM 1.7 mg/dL (1.8-2.4)
[2018-09-15 15:28] LABS: ALBUMIN 2.3 g/dl (3.4-5.0); BILIRUBIN,TOTAL 0.2 mg/dL (0.2-1); BLOOD UREA NITROGEN 10.5 mg/dL (7-18); CALCIUM 8.6 mg/dL (8.5-10.1); CREATININE 0.8 mg/dL (0.55-1.3); POTASSIUM 4.3 mmol/L (3.5-5.1); TOT PROT 5.7 g/dl (6.4-8.2)
[2018-09-15] MEDS ORDERED: LABETALOL HCL 100 MG TABLET (FP) PO ONE (15:30)
[2018-09-15] MEDS ORDERED: MAGNESIUM 1GM/D5W - 1 GM/100 ML IVPB IVPB ONE (15:33)
--- NOTE | 2018-09-15 16:13 | PDOC ---
Documentation entered by Ryan Washington SCRIBE, acting as scribe for Samuel Moss MD. Samuel Moss MD: This documentation has been prepared by the Felix madrigal Daniel, SCRIBE, under my direction and personally reviewed by me in its entirety. I confirm that the documentation accurately reflects all work, treatment, procedures, and medical decision making performed by me. Attending Attestation - Resident Resident Name: ColbyDeisy - ED Attending Attestation I have performed the following: I have examined & evaluated the patient, The case was reviewed & discussed with the resident, I agree w/resident's findings & plan, Exceptions are as noted - HPI HPI: 09/15/18 15:16 The patient is a 47 year old female with no past medical history here today for evaluation of elevated BP. The patient reports that she delivered on sunday. Today, pt checked her BP and found it to be 180/90. This was the first time she checked her BP since discharge from the hospital. She has no complaints other than persistent swelling around her ankles. Denies CP/SOB. Denies WHIPPLE/N/V. Denies abdominal pain. Pt has no h/o HTN prior to this . Was diagnosed with pre-eclampsia during delivery and was started on Mg drip as well as labetalol. Patient denies headache, lightheadedness. Denies fever, chills. Denies chest pain, shortness of breath. Denies nausea, vomiting, diarrhea, abdominal pain. Allergies: NKA PCP: not on staff OB: Maico Vimal - Physicial Exam PE: 09/15/18 16:15 "GENERAL: Awake, alert, and fully oriented, in no acute distress. HEAD: No signs of trauma EYES: PERRLA, EOMI, sclera anicteric, conjunctiva clear ENT: Auricles normal inspection, hearing grossly normal, nares patent, oropharynx clear without exudates. Moist mucosa NECK: Nontender, no stepoffs, Normal ROM, supple, no lymphadenopathy, JVD, or masses LUNGS: Breath sounds equal, clear to auscultation bilaterally. No wheezes, and no crackles HEART: Regular rate and rhythm, normal S1 and S2, no murmurs, rubs or gallops ABDOMEN: Soft, nontender, normoactive bowel sounds. No guarding, no rebound. No masses EXTREMITIES: +1 PE BLE, No clubbing or cyanosis. No cords, erythema, or tenderness NEUROLOGICAL: Cranial nerves II through XII intact. 5/5 strength and sensation in all extremities, Normal speech, normal gait, normal cerebellar function SKIN: Warm, Dry, normal turgor, no rashes or lesions noted. - Critical Care Time Total Critical Care Time: 60 Critical Care Statement: The care of this patient involved high complexity decision making to prevent further life threatening deterioration of the patient 's condition and/or to evaluate & treat vital organ system(s) failure or risk of failure. - Medical Decision Making 09/15/18 16:15 47 F with elevated BP, now 4 days . Suspect pre-eclampsia. Will check LFTs and platelets as well as UA for proteinuria. - Labs, UA - Labetalol PO - Discuss with Dr. Dyson Labs with + proteinuria, uptrending LFTs BP improved with labetalol but still persistently elevated Pt admitted for pre-eclampsia to Dr. Dyson
[2018-09-15 17:22] LABS: ANISOCYTOSIS 1+; MACROCYTOSIS 1+; PLATELET ESTIMATE ADEQUATE
--- NOTE | 2018-09-15 17:35 | CONSULT ---
Consultation: REQUESTING PROVIDER: Dr. Dyson CONSULT REQUEST: ICU Resident HISTORY OF PRESENT ILLNESS: 47yo F who presents today hypertensive after delivering 5 days prior (). Pt was given Labetolol for control of her HTN at home, however today the labetalol was not controlling her BP. Pt was recommended to come to the ED per Dr. Dyson for further workup. In ED, pt was noted to have increased urine protein, SBP to 188 and was diagnosed as pre-ecclampsia/eclampsia by [facility]. It was recommended to start on MgSulfate gtt, however pt would require frequent neuro checks and telemetry monitoring. .Pt currently at my time of exam is without any complaints. She denies any fever/chills, shortness of breath, cough , chest pain/discomfort, palpitations, abdominal pain, dysuria, polyuria, hematuria, n/v/d/c, lightheadedness/dizziness. Allergies: NKDA REVIEW OF SYSTEMS: As per HPI PHYSICAL EXAMINATION Vital Signs 09/15/18 09/15/18 09/15/18 13:36 15:47 16:12 Temperature 97.1 F L Pulse Rate 70 Respiratory 20 Rate Blood Pressure 188/78 H Blood Pressure 168/80 163/71 [Left Arm] O2 Sat by Pulse 95 Oximetry (%) 09/15/18 16:34 Temperature Pulse Rate Respiratory Rate Blood Pressure Blood Pressure 145/88 [Left Arm] O2 Sat by Pulse Oximetry (%) GENERAL: NAD, Awake, alert, and fully oriented HEENT: NC/AT, ABEL, sclera anicteric, MMM NECK: No JVD LUNGS: CTA bilaterally. No wheezes, and no crackles. No accessory muscle use. HEART: RRR, normal S1 and S2 without murmur ABDOMEN: Soft, NT/ND, normoactive bowel sounds, no guarding, MUSCULOSKELETAL: No CVA tenderness. EXTREMITIES: 2+ DP pulses, warm, well-perfused. No calf tenderness. 1+ pitting peripheral edema to mid-leg. NEUROLOGICAL: furniture servicer II-XII intact. Normal speech. Normal gait. Strength intact throughout. Sensation intact throughout. Patellar reflexes 2/4 PSYCHIATRIC: Cooperative. Good eye contact. Appropriate mood and affect. SKIN: Warm, dry, no rashes or lesions noted. Laboratory Results 09/15/18 09/15/18 09/15/18 14:34 14:34 14:34 WBC 9.1 RBC 2.54 L Hgb 8.0 L Hct 23.8 L D MCV 93.6 MCH 31.6 MCHC 33.7 RDW 13.9 Plt Count 269 MPV 7.9 Absolute Neuts (auto) 6.1 Neutrophils % 66.3 D Neutrophils % (Manual) 65.0 Band Neutrophils % 1.0 Lymphocytes % 24.5 D Lymphocytes % (Manual) 27.0 D Monocytes % 4.9 Monocytes % (Manual) 6 D Eosinophils % 3.6 D Eosinophils % (Manual) 1.0 D Basophils % 0.7 Nucleated RBC % 0 Platelet Estimate Adequate Anisocytosis 1+ Macrocytosis 1+ PT with INR INR Sodium 142 Potassium 4.3 Chloride 109 H Carbon Dioxide 24 Anion Gap 9 BUN 10.5 Creatinine 0.8 Est GFR (CKD-EPI)AfAm 101.75 Est GFR (CKD-EPI)NonAf 87.79 Random Glucose 80 Calcium 8.6 Magnesium 1.7 L Total Bilirubin 0.2 AST 62 H ALT 42 Alkaline Phosphatase 92 Creatine Kinase 79 Troponin I < 0.02 B-Natriuretic Peptide Total Protein 5.7 L Albumin 2.3 L TSH 2.40 Urine Color Urine Appearance Urine pH Ur Specific [place] Urine Protein Urine Glucose (UA) Urine Ketones Urine Blood Urine Nitrite Urine Bilirubin Urine Urobilinogen Ur Leukocyte Esterase Urine WBC (Auto) Urine RBC (Auto) Urine Casts (Auto) U Pathogenic Cast Auto U Epithel Cells (Auto) U Sm Round Cell (Auto) Urine Bacteria (Auto) 09/15/18 09/15/18 09/15/18 14:34 14:34 14:44 WBC RBC Hgb Hct MCV MCH MCHC RDW Plt Count MPV Absolute Neuts (auto) Neutrophils % Neutrophils % (Manual) Band Neutrophils % Lymphocytes % Lymphocytes % (Manual) Monocytes % Monocytes % (Manual) Eosinophils % Eosinophils % (Manual) Basophils % Nucleated RBC % Platelet Estimate Anisocytosis Macrocytosis PT with INR 10.30 INR 0.87 Sodium Potassium Chloride Carbon Dioxide Anion Gap BUN Creatinine Est GFR (CKD-EPI)AfAm Est GFR (CKD-EPI)NonAf Random Glucose Calcium Magnesium Total Bilirubin AST ALT Alkaline Phosphatase Creatine Kinase Troponin I B-Natriuretic Peptide 410.6 H Total Protein Albumin TSH Urine Color [place] Urine Appearance Clear Urine pH 7.0 Ur Specific [place] 1.008 L Urine Protein 1+ H Urine Glucose (UA) Negative Urine Ketones Negative Urine Blood 3+ H Urine Nitrite Negative Urine Bilirubin Negative Urine Urobilinogen 0.2 Ur Leukocyte Esterase 1+ H Urine WBC (Auto) 12 Urine RBC (Auto) 271 Urine Casts (Auto) 58 U Pathogenic Cast Auto None seen U Epithel Cells (Auto) 14.2 U Sm Round Cell (Auto) Present Urine Bacteria (Auto) 4.1 ASSESSMENT/PLAN: Eclampsia HTN Asymptomatic Bacteruria --Magnesium sulfate gtt for seizure prevention --Serum Mg check q6h --Per Dr. Dyson, serum levels upper limit of serum level is 6 given seizure prevention protocols --Monitor patellar reflexes (loss of reflexes are first sign of Mg Toxicity) --Seizure precautions --Given HTN will place Labetolol PRN IVP dosing for SBP goal <140 --Asymptomatic bacteruria likely colonization following delivering and does not require treatment; monitor for dysuria, polyuria signs and symptoms FEN: Fluids: Euvolemic Electrolyte abnormalities: HypoMg (1.7) Nutrition: Regular diet PPX: DVT - SCDs only GI - Not indicated Dispo: If no appropriate placement in maternity, L&D, or post- due to lack of telemetry monitoring can be placed in Telemetry or ICU given close monitoring needs. However would recommend attempt to place in the former first due to familiarity of disease process. Case discussed with Dr. Karis Posey, DO - IM PGY-3 Visit type - Emergency Visit Emergency Visit: Yes ED Registration Date: 09/15/18 Care time: The patient presented to the Emergency Department on the above date and was hospitalized for further evaluation of their emergent condition. - New Patient This patient is new to me today: Yes Date on this admission: 09/15/18 - Critical Care Critical Care patient: Yes Total Critical Care Time (in minutes): 30 Critical Care Statement: The care of this patient involved high complexity decision making to prevent further life threatening deterioration of the patient 's condition and/or to evaluate & treat vital organ system(s) failure or risk of failure.
[2018-09-15] MEDS ORDERED: MAGNESIUM SULFATE 20GM/500ML - 20 GM/500 ML INFUS.BAG IVPB SCH (17:45)
[2018-09-15 19:09] LABS: MAGNESIUM 1.9 mg/dL (1.8-2.4)
[2018-09-15] MEDS: LABETALOL HCL 200 MG TABLET (FP) PO PRN (20:31)
[2018-09-15] MEDS: ACETAMINOPHEN 325 MG TABLET (FP) PO PRN (20:46)
[2018-09-15] MEDS: oxyCODONE HCL 5 MG TABLET PO PRN (20:47)
[2018-09-15] MEDS: PRENATAL VITAMINS W/ FOLIC ACID TABLET (FP) PO SCH (22:00)
--- NOTE | 2018-09-15 22:10 | HP ---
Past Medical History - Primary Care Physician PCP:: Atul Dyson - Admission Chief Complaint: induced HTN, History of Present Illness: 47 yo f s/p 09/11/2018 , developed HTN , treated with Mgso4 and labetalol ,on discharge BP was normal , today return to er with elevated BP 165/90 , no headache, no blurred vision, no RUQ pain , urine ! + protein , mild elevation of LFT, platelets normal, admitted for pih , and Mgso4 and management of BP. History Source: Patient Limitations to Obtaining History: No Limitations - Past Medical History Cardiovascular: Yes: HTN Pulmonary: Yes: Other (emphysema) Endocrine: Yes: Other (elevated cholesterol) - Past Surgical History Past Surgical History: Yes: None Hx Myomectomy: No Hx Transabdominal Cerclage: No - Smoking History Smoking history: Never smoked Have you smoked in the past 12 months: No - Alcohol/Substance Use Hx Alcohol Use: No History of Substance Use: reports: None - Social History Usual Living Arrangement: Yes: With Spouse History of Recent Travel: No Home Medications - Allergies Allergies/Adverse Reactions: Allergies Allergy/AdvReac Type Severity Reaction Status Date / Time No Known Allergies Allergy Verified 09/11/18 07:57 - Home Medications Home Medications: Ambulatory Orders Vits96/Iron Fum/Folic [ Tablet] 1 each PO DAILY 09/11/18 Family Disease History - Family Disease History Family Disease History: Heart Disease: Brother, [place]: Sister (cervical), Other: Father (HTN, brain tumor, lymphoma), Mother (HTN) Review of Systems - Review of Systems Constitutional: reports: No Symptoms Eyes: reports: No Symptoms HENT: reports: No Symptoms Neck: reports: No Symptoms Gastrointestinal: reports: No Symptoms Genitourinary: reports: No Symptoms Breasts: reports: No Symptoms Reported Musculoskeletal: reports: No Symptoms Integumentary: reports: No Symptoms Neurological: reports: No Symptoms Endocrine: reports: No Symptoms Hematology/Lymphatic: reports: No Symptoms Psychiatric: reports: No Symptoms Physical Exam-[employer] Vital Signs: Vital Signs Temperature 98.0 F 09/15/18 17:35 Pulse Rate 62 09/15/18 19:30 Respiratory Rate 19 09/15/18 17:35 Blood Pressure 172/98 H 09/15/18 19:30 O2 Sat by Pulse Oximetry (%) 97 09/15/18 19:16 Constitutional: Yes: Well Nourished, No Distress, Calm Eyes: Yes: WNL, Conjunctiva Clear, EOM Intact HENT: Yes: WNL, Atraumatic, Normocephalic Neck: Yes: WNL, Supple, Trachea Midline Cardiovascular: Yes: WNL, Regular Rate and Rhythm Respiratory: Yes: WNL, Regular, CTA Bilaterally Gastrointestinal: Yes: WNL ...Rectal Exam: Yes: WNL Renal/: Yes: WNL Pelvis: Yes: WNL External Genitalia: Yes: Normal Vaginal Exam: Yes: Normal Cervix: Yes: Normal ....Post : Yes: Uterus firm (enlarged , uterus), Slight lochia rubra Breast(s): Yes: WNL Musculoskeletal: Yes: WNL Extremities: Yes: WNL Edema: Yes Edema: LLE: 1+, RLE: 1+ Integumentary: Yes: WNL Neurological: Yes: WNL, Alert, Oriented ...Motor Strength: WNL Psychiatric: Yes: WNL, Alert, Oriented Labs: CBC, BMP 09/15/18 14:34 09/15/18 14:34 Problem List - Problem (1) induced hypertension, Code(s): O13.5 - GESTATNL HTN WITHOUT SIGNIFICANT PROTEIN, COMP THE PUERP Assessment/Plan admit to ICU for Mgso4 monitor BP labetalol po, if bp cont.to rise will switch to inv drip repeat LFT in am
[2018-09-16] MEDS: ACETAMINOPHEN 325 MG TABLET (FP) PO PRN ×2 (00:54→05:59)
[2018-09-16] MEDS: oxyCODONE HCL 5 MG TABLET PO PRN (00:57)
[2018-09-16] MEDS: LABETALOL HCL 200 MG TABLET (FP) PO PRN ×2 (05:59→19:23)
[2018-09-16 06:06] LABS: BASO % 0.6 % (0-2.0); EOS % 3.4 % (0-4.5); HEMATOCRIT 21.9 % (32.4-45.2); HEMOGLOBIN 7.6 GM/dL (10.7-15.3); LYMPH % 26.4 % (8-40); MCH 31.9 pg (25.7-33.7); MCHC 34.6 g/dl (32.0-36.0); MEAN CELL VOLUME 92.2 fl (80-96); MEAN PLT VOLUME 7.5 fl (7.5-11.1); MONO % 4.7 % (3.8-10.2); NEUT % 64.9 % (42.8-82.8); PLATELET COUNT 269 K/MM3 (134-434); RBC 2.37 M/mm3 (3.60-5.2); WHITE BLOOD COUNT 9.6 K/mm3 (4.0-10.0)
[2018-09-16 06:26] LABS: ALBUMIN 2.2 g/dl (3.4-5.0); BILIRUBIN,TOTAL 0.2 mg/dL (0.2-1); BLOOD UREA NITROGEN 12.4 mg/dL (7-18); CALCIUM 8.2 mg/dL (8.5-10.1); CREATININE 0.8 mg/dL (0.55-1.3); TOT PROT 5.4 g/dl (6.4-8.2)
--- NOTE | 2018-09-16 07:57 | PN ---
Physical Exam: SUBJECTIVE: Patient seen and examined at bedside this morning. Patient endorses headache after starting the magnesium drip. She denies any changes in visaion, lightheadedness, dizziness, weakness, chest pain, palpitations, abdominal pain, nausea, vomiting. OBJECTIVE: Vital Signs Period Temp Pulse Resp BP Sys/Lyon Pulse Ox Last 24 Hr 97.1 F-98.2 F 54-72 16-20 141-192/67-108 95-98 GENERAL: The patient is awake, alert, and fully oriented, in no acute distress. HEAD: Normal with no signs of trauma. EYES: PERRL, extraocular movements intact, sclera anicteric, conjunctiva clear. No ptosis. ENT: Ears normal, nares patent, oropharynx clear without exudates, moist mucous membranes. NECK: Trachea midline, full range of motion, supple. LUNGS: Breath sounds equal, clear to auscultation bilaterally, no wheezes, no crackles, no accessory muscle use. HEART: Regular rate and rhythm, S1, S2 without murmur, rub or gallop. ABDOMEN: Soft, nontender, nondistended, normoactive bowel sounds, no guarding, no rebound, no hepatosplenomegaly, no masses. EXTREMITIES: 2+ pulses, warm, well-perfused, no edema. NEUROLOGICAL: Cranial nerves II through XII grossly intact. Normal speech. Patellar reflexes 2+ bilaterally. PSYCH: Normal mood, normal affect. SKIN: Warm, dry, normal turgor, no rashes or lesions noted Laboratory Results - last 24 hr 09/15/18 09/15/18 09/15/18 14:34 14:34 14:34 WBC 9.1 RBC 2.54 L Hgb 8.0 L Hct 23.8 L D MCV 93.6 MCH 31.6 MCHC 33.7 RDW 13.9 Plt Count 269 MPV 7.9 Absolute Neuts (auto) 6.1 Neutrophils % 66.3 D Neutrophils % (Manual) 65.0 Band Neutrophils % 1.0 Lymphocytes % 24.5 D Lymphocytes % (Manual) 27.0 D Monocytes % 4.9 Monocytes % (Manual) 6 D Eosinophils % 3.6 D Eosinophils % (Manual) 1.0 D Basophils % 0.7 Nucleated RBC % 0 Platelet Estimate Adequate Anisocytosis 1+ Macrocytosis 1+ PT with INR INR Sodium 142 Potassium 4.3 Chloride 109 H Carbon Dioxide 24 Anion Gap 9 BUN 10.5 Creatinine 0.8 Est GFR (CKD-EPI)AfAm 101.75 Est GFR (CKD-EPI)NonAf 87.79 Random Glucose 80 Calcium 8.6 Magnesium 1.7 L 1.9 Total Bilirubin 0.2 AST 62 H ALT 42 Alkaline Phosphatase 92 Creatine Kinase 79 Troponin I < 0.02 B-Natriuretic Peptide Total Protein 5.7 L Albumin 2.3 L TSH 2.40 Urine Color Urine Appearance Urine pH Ur Specific [place] Urine Protein Urine Glucose (UA) Urine Ketones Urine Blood Urine Nitrite Urine Bilirubin Urine Urobilinogen Ur Leukocyte Esterase Urine WBC (Auto) Urine RBC (Auto) Urine Casts (Auto) U Pathogenic Cast Auto U Epithel Cells (Auto) U Sm Round Cell (Auto) Urine Bacteria (Auto) 09/15/18 09/15/18 09/15/18 14:34 14:34 14:44 WBC RBC Hgb Hct MCV MCH MCHC RDW Plt Count MPV Absolute Neuts (auto) Neutrophils % Neutrophils % (Manual) Band Neutrophils % Lymphocytes % Lymphocytes % (Manual) Monocytes % Monocytes % (Manual) Eosinophils % Eosinophils % (Manual) Basophils % Nucleated RBC % Platelet Estimate Anisocytosis Macrocytosis PT with INR 10.30 INR 0.87 Sodium Potassium Chloride Carbon Dioxide Anion Gap BUN Creatinine Est GFR (CKD-EPI)AfAm Est GFR (CKD-EPI)NonAf Random Glucose Calcium Magnesium Total Bilirubin AST ALT Alkaline Phosphatase Creatine Kinase Troponin I B-Natriuretic Peptide 410.6 H Total Protein Albumin TSH Urine Color [place] Urine Appearance Clear Urine pH 7.0 Ur Specific [place] 1.008 L Urine Protein 1+ H Urine Glucose (UA) Negative Urine Ketones Negative Urine Blood 3+ H Urine Nitrite Negative Urine Bilirubin Negative Urine Urobilinogen 0.2 Ur Leukocyte Esterase 1+ H Urine WBC (Auto) 12 Urine RBC (Auto) 271 Urine Casts (Auto) 58 U Pathogenic Cast Auto None seen U Epithel Cells (Auto) 14.2 U Sm Round Cell (Auto) Present Urine Bacteria (Auto) 4.1 09/15/18 09/16/18 09/16/18 22:30 05:30 05:30 WBC 9.6 RBC 2.37 L Hgb 7.6 L Hct 21.9 L MCV 92.2 MCH 31.9 MCHC 34.6 RDW 14.0 Plt Count 269 MPV 7.5 Absolute Neuts (auto) 6.2 Neutrophils % 64.9 Neutrophils % (Manual) Band Neutrophils % Lymphocytes % 26.4 Lymphocytes % (Manual) Monocytes % 4.7 Monocytes % (Manual) Eosinophils % 3.4 Eosinophils % (Manual) Basophils % 0.6 Nucleated RBC % 0 Platelet Estimate Anisocytosis Macrocytosis PT with INR INR Sodium 139 Potassium 4.0 Chloride 105 Carbon Dioxide 27 Anion Gap 7 L BUN 12.4 Creatinine 0.8 Est GFR (CKD-EPI)AfAm 101.75 Est GFR (CKD-EPI)NonAf 87.79 Random Glucose 88 Calcium 8.2 L Magnesium 3.2 H Total Bilirubin 0.2 AST 45 H ALT 45 Alkaline Phosphatase 86 Creatine Kinase Troponin I B-Natriuretic Peptide Total Protein 5.4 L Albumin 2.2 L TSH Urine Color Urine Appearance Urine pH Ur Specific [place] Urine Protein Urine Glucose (UA) Urine Ketones Urine Blood Urine Nitrite Urine Bilirubin Urine Urobilinogen Ur Leukocyte Esterase Urine WBC (Auto) Urine RBC (Auto) Urine Casts (Auto) U Pathogenic Cast Auto U Epithel Cells (Auto) U Sm Round Cell (Auto) Urine Bacteria (Auto) 09/16/18 05:30 WBC RBC Hgb Hct MCV MCH MCHC RDW Plt Count MPV Absolute Neuts (auto) Neutrophils % Neutrophils % (Manual) Band Neutrophils % Lymphocytes % Lymphocytes % (Manual) Monocytes % Monocytes % (Manual) Eosinophils % Eosinophils % (Manual) Basophils % Nucleated RBC % Platelet Estimate Anisocytosis Macrocytosis PT with INR INR Sodium Potassium Chloride Carbon Dioxide Anion Gap BUN Creatinine Est GFR (CKD-EPI)AfAm Est GFR (CKD-EPI)NonAf Random Glucose Calcium Magnesium 4.5 H Total Bilirubin AST ALT Alkaline Phosphatase Creatine Kinase Troponin I B-Natriuretic Peptide Total Protein Albumin TSH Urine Color Urine Appearance Urine pH Ur Specific [place] Urine Protein Urine Glucose (UA) Urine Ketones Urine Blood Urine Nitrite Urine Bilirubin Urine Urobilinogen Ur Leukocyte Esterase Urine WBC (Auto) Urine RBC (Auto) Urine Casts (Auto) U Pathogenic Cast Auto U Epithel Cells (Auto) U Sm Round Cell (Auto) Urine Bacteria (Auto) Active Medications Generic Name Dose Route Start Last Admin Trade Name Freq PRN Reason Stop Dose Admin Acetaminophen 650 mg 09/15/18 20:37 09/16/18 05:59 Tylenol - PO 650 mg Q4H PRN Administration FEVER Enoxaparin Sodium 40 mg 09/16/18 10:00 Lovenox - SQ DAILY KEVIN Magnesium Sulfate 20 gm in 500 mls @ 25 mls/hr 09/15/18 17:45 09/15/18 19:02 Magnesium Sulfate 20gm/500ml - IVPB 25 mls/hr ASDIR KEVIN Administration Labetalol HCl 200 mg 09/15/18 17:39 09/16/18 05:59 Normodyne - PO 200 mg TID PRN Administration HYPERTENSION Oxycodone HCl 5 mg 09/15/18 20:38 09/16/18 00:57 Roxicodone - PO 5 mg Q6H PRN Administration PAIN LEVEL 7 - 10 Multivit/Folic Acid/Iron 1 tab 09/15/18 20:45 09/15/18 22:00 Vitamins (Sjr) - PO 1 tab DAILY KEVIN Administration ASSESSMENT/PLAN: Patient is a 47 year old female with history of hypertension, admitted to ICU for post- preeclampsia. Neurologic -Patient is awake, alert, fully oriented in no acute distress. -Monitor for signs of mental status changes Cardiac Pre-eclampsia -Patient is on Magnesium drip. Follow Magnesium level goal 4-6 -BP control with Labetalol 200mg PO TID -OBGYN recommendations (Dr. Isaacs) appreciated. Pulmonary -Mainain oxygen saturation greater than 90% Gastrointestinal -Patient is tolerating diet, without abdominal pain, nausea, vomiting. FEN -Fluids: No IV fluids indicated, history of heart failure -Electrolytes: Follow CMP -Nutrition: Regular modified diet Prophylaxis -Lovenox 40units subq daily Disposition: We will continue to follow the patient. Thank you for this consultative opportunity. Visit type - Emergency Visit Emergency Visit: Yes ED Registration Date: 09/15/18 Care time: The patient presented to the Emergency Department on the above date and was hospitalized for further evaluation of their emergent condition. - New Patient This patient is new to me today: Yes Date on this admission: 09/16/18 - Critical Care Critical Care patient: Yes Total Critical Care Time (in minutes): 35 Critical Care Statement: The care of this patient involved high complexity decision making to prevent further life threatening deterioration of the patient 's condition and/or to evaluate & treat vital organ system(s) failure or risk of failure. - Discharge Referral Referred to [facility] No ATTENDING PHYSICIAN STATEMENT I saw and evaluated the patient. I reviewed the resident's note and discussed the case with the resident. I agree with the resident's findings and plan as documented. SUBJECTIVE: OBJECTIVE: ASSESSMENT AND PLAN:
[2018-09-16] MEDS ORDERED: PT OWN MED DRAWER 7, Y5N ONE ×3 (09:27→15:35)
[2018-09-16] MEDS ORDERED: MAGNESIUM SULFATE 20GM/500ML - 20 GM/500 ML INFUS.BAG IVPB SCH (09:33)
[2018-09-16] MEDS: ENOXAPARIN NA (PORCINE) 40 MG/0.4 ML DISP.SYRIN SQ SCH (10:33)
[2018-09-16] MEDS: PRENATAL VITAMINS W/ FOLIC ACID TABLET (FP) PO SCH (10:34)
[2018-09-16] MEDS ORDERED: ACETAMINOPHEN 1000 MG/100 ML VIAL (NON FORMULARY) IVPB PRN (11:13)
--- NOTE | 2018-09-16 11:52 | EKG ---
Test Reason : Blood Pressure : / mmHG Vent. Rate : 050 BPM Atrial Rate : 050 BPM P-R Int : 162 ms QRS Dur : 084 ms QT Int : 436 ms P-R-T Axes : -03 041 039 degrees QTc Int : 397 ms SINUS BRADYCARDIA OTHERWISE NORMAL ECG NO PREVIOUS ECGS AVAILABLE Confirmed by REJI MERCER MD ([id number]) on 09/16/2018 11:51:45 AM Referred By: Confirmed By:REJI MERCER MD
--- NOTE | 2018-09-16 13:00 | PN ---
Teaching Attending Note Name of Resident: Daryl Rubi ATTENDING PHYSICIAN STATEMENT I saw and evaluated the patient. I reviewed the resident's note and discussed the case with the resident. I agree with the resident's findings and plan as documented. SUBJECTIVE: Pt seen and examined in the ICU. Remains on magnesium gtt. Still with headache. No nausea or vomiting. OBJECTIVE: Vital Signs Period Temp Pulse Resp BP Sys/Lyon Pulse Ox Last 24 Hr 97.1 F-98.3 F 54-72 14-20 114-192/59-108 95-98 Intake & Output 09/13/18 09/14/18 09/15/18 09/16/18 23:59 23:59 23:59 23:59 Intake Total 75 150 Balance 75 150 Weight 78.47 kg Gen: NAD at rest Heart: RRR Lung: decreased breath sounds at the bases Abd: soft, nontender Ext: no edema CBC, BMP 09/16/18 05:30 09/16/18 05:30 Active Medications Acetaminophen (Tylenol -) 650 mg PO Q4H PRN PRN Reason: FEVER Last Admin: 09/16/18 05:59 Dose: 650 mg Acetaminophen (Ofirmev Injection -) 1,000 mg IVPB Q6H PRN PRN Reason: PAIN LEVEL 6-10 Enoxaparin Sodium (Lovenox -) 40 mg SQ DAILY [facility] Last Admin: 09/16/18 10:33 Dose: 40 mg Magnesium Sulfate (Magnesium Sulfate 20gm/500ml -) 20 gm in 500 mls @ 25 mls/ hr IVPB Q20H [facility] Labetalol HCl (Normodyne -) 200 mg PO TID PRN PRN Reason: HYPERTENSION Last Admin: 09/16/18 05:59 Dose: 200 mg Oxycodone HCl (Roxicodone -) 5 mg PO Q6H PRN PRN Reason: PAIN LEVEL 7 - 10 Last Admin: 09/16/18 00:57 Dose: 5 mg Multivit/Folic Acid/Iron ( Vitamins (Sjr) -) 1 tab PO DAILY [facility] Last Admin: 09/16/18 10:34 Dose: 1 tab ASSESSMENT AND PLAN: Post Pre-Elcampsia HTN - continue magnesium gtt - BP control - PO as tolerated - DVT prophylaxis
[2018-09-16 16:21] VITALS: TEMP 98
--- NOTE | 2018-09-16 16:55 | PN ---
Progress Note (short form) - Note Progress Note: no headache, no blurred vision , no RUQ pain, no vaginal bleeding, no dizziness Last Vital Signs Temp Pulse Resp BP Pulse Ox 98 F 70 18 123/91 96 09/16/18 14:00 09/16/18 16:00 09/16/18 16:00 09/16/18 16:00 09/16/18 07:50 abdomen soft, no distension, no cva , no RUQ tenderness uterus firm, non tender no vaginal bleeding no calf tenderness impression 1 gradual improvement of BP, will cont.mgso4 till 6 pm if bp stable trsnsfer to PP floor medical and renal follow up for HTN anemia asymptomatic will start on iron, vit Problem List - Problems (1) induced hypertension, Code(s): O13.5 - GESTATNL HTN WITHOUT SIGNIFICANT PROTEIN, COMP THE PUERP
--- NOTE | 2018-09-16 20:07 | PN ---
Progress Note (SOAP) - Subjective Chief Complaint: No complaints, breast engorgement- pumping. No WHIPPLE, scotoma, blurry vision, abdominal pain. She reports "swelling decreased". History of Present Illness: Pt readmitted 09/15/2018 with severe preeclampsia- , anemia due to acute blood loss. Pt is s/p 09/11/2018 with peripartum course complicated by severe PEC and immediate hemorrhage. - Current Medications Current Medications: Active Medications Acetaminophen (Tylenol -) 650 mg PO Q4H PRN PRN Reason: FEVER Last Admin: 09/16/18 05:59 Dose: 650 mg Acetaminophen (Ofirmev Injection -) 1,000 mg IVPB Q6H PRN PRN Reason: PAIN LEVEL 6-10 Enoxaparin Sodium (Lovenox -) 40 mg SQ DAILY [facility] Last Admin: 09/16/18 10:33 Dose: 40 mg Magnesium Sulfate (Magnesium Sulfate 20gm/500ml -) 20 gm in 500 mls @ 25 mls/ hr IVPB Q20H [facility] Last Admin: 09/16/18 15:37 Dose: 25 mls/hr Labetalol HCl (Normodyne -) 200 mg PO TID PRN PRN Reason: HYPERTENSION Last Admin: 09/16/18 19:23 Dose: 200 mg Oxycodone HCl (Roxicodone -) 5 mg PO Q6H PRN PRN Reason: PAIN LEVEL 7 - 10 Last Admin: 09/16/18 00:57 Dose: 5 mg Multivit/Folic Acid/Iron ( Vitamins (Sjr) -) 1 tab PO DAILY [facility] Last Admin: 09/16/18 10:34 Dose: 1 tab - Objective Vital Signs: Vital Signs Temperature 98 F 09/16/18 14:00 Pulse Rate 74 09/16/18 18:00 Respiratory Rate 18 09/16/18 18:00 Blood Pressure 158/87 09/16/18 18:00 O2 Sat by Pulse Oximetry (%) 96 09/16/18 07:50 Constitutional: Yes: Well Nourished, No Distress, Calm Eyes: Yes: WNL, Conjunctiva Clear, EOM Intact HENT: Yes: WNL, Atraumatic, Normocephalic Neck: Yes: WNL, Supple, Trachea Midline Cardiovascular: Yes: WNL, Regular Rate and Rhythm Respiratory: Yes: WNL, Regular, CTA Bilaterally Gastrointestinal: Yes: WNL, Normal Bowel Sounds, Soft ...Rectal Exam: Yes: Deferred Genitourinary: Yes: WNL, Vaginal Bleeding (scant lochia) ....Post : Yes: Uterus firm, Uterus non-tender, Slight lochia rubra Breast(s): Yes: Other (bilateral engorgement- pt is pumping and using warm compresses) Musculoskeletal: Yes: WNL Extremities: Yes: WNL Peripheral Pulses WNL: Yes Edema: Yes Edema: LLE: Trace, RLE: Trace Integumentary: Yes: WNL Neurological: Yes: WNL, Alert, Oriented ...Motor Strength: Yes: WNL Psychiatric: Yes: WNL, Alert, Oriented Labs Lab Results: CBC, BMP 09/16/18 05:30 09/16/18 05:30 Assessment/Plan 47yo P2 s/p on 09/11/18 with severe PEC, and anemia due to acute blood loss (immediate PPH). 1. PEC- BP's are improved with labetalol. She has been on MgSO4 > 24hrs. She is asymptomatic for severe PEC. Plan to stop MgSO4 at this point. 2. Continue Labetalol and titrate to BP <140/90, if tolerated 3. - denies depression but misses her girls. Continue breast pumping. enrollment consultant. 4. Anemia- Hct dropped from 23 to 21%, likely due to hydration. No evidence of DIC and lochia is scant. However, plan to repeat labs now. If Hct drops to less than 20%, will transfuse PRBC.
[2018-09-16 21:28] LABS: HEMATOCRIT 25.1 % (32.4-45.2); HEMOGLOBIN 8.5 GM/dL (10.7-15.3); MCH 31.6 pg (25.7-33.7); MCHC 33.9 g/dl (32.0-36.0); MEAN CELL VOLUME 93.1 fl (80-96); MEAN PLT VOLUME 7.4 fl (7.5-11.1); PLATELET COUNT 343 K/MM3 (134-434); RBC 2.69 M/mm3 (3.60-5.2); WHITE BLOOD COUNT 11.3 K/mm3 (4.0-10.0)
[2018-09-16 21:58] LABS: ALBUMIN 2.6 g/dl (3.4-5.0); BILIRUBIN,TOTAL 0.3 mg/dL (0.2-1); BLOOD UREA NITROGEN 11.5 mg/dL (7-18); CALCIUM 8.5 mg/dL (8.5-10.1); CREATININE 0.8 mg/dL (0.55-1.3); POTASSIUM 4.1 mmol/L (3.5-5.1); TOT PROT 6.3 g/dl (6.4-8.2)
[2018-09-16] MEDS ORDERED: LABETALOL HCL 5 MG/1 ML (100MG/20 ML VIAL) IVPUSH ONE (23:14)
[2018-09-17] MEDS: LABETALOL HCL 200 MG TABLET (FP) PO PRN ×2 (03:15→14:14)
[2018-09-17 06:52] LABS: HEMOGLOBIN 7.9 GM/dL (10.7-15.3); MCH 31.9 pg (25.7-33.7); MCHC 34.4 g/dl (32.0-36.0); MEAN CELL VOLUME 92.7 fl (80-96); MEAN PLT VOLUME 7.3 fl (7.5-11.1); PLATELET COUNT 311 K/MM3 (134-434); RBC 2.48 M/mm3 (3.60-5.2); RDW 14.2 % (11.6-15.6); WHITE BLOOD COUNT 8.8 K/mm3 (4.0-10.0)
[2018-09-17 07:22] LABS: ALBUMIN 2.5 g/dl (3.4-5.0); BILIRUBIN,TOTAL 0.4 mg/dL (0.2-1); BLOOD UREA NITROGEN 10.5 mg/dL (7-18); CALCIUM 8.3 mg/dL (8.5-10.1); CREATININE 0.9 mg/dL (0.55-1.3); MAGNESIUM 2.7 mg/dL (1.8-2.4); POTASSIUM 4.1 mmol/L (3.5-5.1); TOT PROT 5.8 g/dl (6.4-8.2)
[2018-09-17] MEDS ORDERED: PT OWN MED DRAWER 7, Y5N ONE (11:08)
[2018-09-17] MEDS: ENOXAPARIN NA (PORCINE) 40 MG/0.4 ML DISP.SYRIN SQ SCH (11:15)
[2018-09-17] MEDS: PRENATAL VITAMINS W/ FOLIC ACID TABLET (FP) PO SCH (11:15)
--- NOTE | 2018-09-17 13:23 | PN ---
Progress Note (short form) - Note Progress Note: Renal follow up for hypertensin Pt was re-admitted to the hospital for elevated BP on 09/15/2018, after intial discharge from L&R on 09/13/2018. Pt did have pre-eclamspia post delivery but BP was moderated without medications on 2nd hospital day and was discharge home off medications. Pt reports her BP was ~180/90 at home. She reported posterior neck/shoulder discomfort but denied any chest pain, blurry vision, headache or N /V. Currently she is asymptomatic. Pt was started on labetalol for BP control with improvement in BP. Vital Signs Temperature 98 F 09/16/18 20:00 Pulse Rate 80 09/17/18 08:00 Respiratory Rate 24 H 09/17/18 10:00 Blood Pressure 124/88 09/17/18 10:00 O2 Sat by Pulse Oximetry (%) 97 09/17/18 08:39 Intake & Output 09/14/18 09/15/18 09/16/18 09/17/18 23:59 23:59 23:59 23:59 Intake Total 75 500 Balance 75 500 Weight 78.47 kg NAD no abd tenderness no LE edema, no calf tenderness CBC, BMP 09/17/18 06:15 09/17/18 06:15 Current Medications Acetaminophen (Tylenol -) 650 mg PO Q4H PRN PRN Reason: FEVER Last Admin: 09/16/18 05:59 Dose: 650 mg Acetaminophen (Ofirmev Injection -) 1,000 mg IVPB Q6H PRN PRN Reason: PAIN LEVEL 6-10 Enoxaparin Sodium (Lovenox -) 40 mg SQ DAILY [facility] Last Admin: 09/17/18 11:15 Dose: 40 mg Labetalol HCl (Normodyne -) 200 mg PO TID PRN PRN Reason: HYPERTENSION Last Admin: 09/17/18 03:15 Dose: 200 mg Oxycodone HCl (Roxicodone -) 5 mg PO Q6H PRN PRN Reason: PAIN LEVEL 7 - 10 Last Admin: 09/16/18 00:57 Dose: 5 mg Multivit/Folic Acid/Iron ( Vitamins (Sjr) -) 1 tab PO DAILY [facility] Last Admin: 09/17/18 11:15 Dose: 1 tab 47 year old woman with no significant past medical history readmitted to the hospital with hypertension/hypertensive urgency. # hypertension secondary to preeclampsia without evidence of HELLP syndrome/hypertensive urgency # s/p vaginal delivery #Anemia #Elevated AST BP is well controlled on Labetalol 200mg can be discharged on labetalol 200mg BID advised to maintain a low salt diet will repeat UCPR as an outpatient to follow up in our office next week for BP monitoring case discussed with OB and ICU resident Valentín Gabriel DO
--- NOTE | 2018-09-17 13:34 | PN ---
Progress Note (short form) - Note Progress Note: doing well, asymptomatic , no headache, no blurred vision CBC, BMP 09/17/18 06:15 09/17/18 06:15 Last Vital Signs Temp Pulse Resp BP Pulse Ox 98 F 80 24 H 124/88 97 09/16/18 20:00 09/17/18 08:00 09/17/18 10:00 09/17/18 10:00 09/17/18 08:39 abdomen soft, uterus firm no excess vaginal bleeding no calf pain impression doing well. bp are normal plan d/c home on airon, vit labetalol as directed by Dr Gabriel Problem List - Problems (1) induced hypertension, Code(s): O13.5 - GESTATNL HTN WITHOUT SIGNIFICANT PROTEIN, COMP THE PUERP
--- NOTE | 2018-09-17 14:10 | PN ---
Teaching Attending Note Name of Resident: Juan M Posey ATTENDING PHYSICIAN STATEMENT I saw and evaluated the patient. I reviewed the resident's note and discussed the case with the resident. I agree with the resident's findings and plan as documented. SUBJECTIVE: Pt seen and examined in the ICU. Feels much improved. Off magnesium gtt. Blood pressures improved. No nausea or vomiting. Tolerating PO. OBJECTIVE: Vital Signs Period Temp Pulse Resp BP Sys/Lyon Pulse Ox Last 24 Hr 98 F 61-80 17-24 123-163/69-91 96-97 Intake & Output 09/14/18 09/15/18 09/16/18 09/17/18 23:59 23:59 23:59 23:59 Intake Total 75 500 Balance 75 500 Weight 78.47 kg Gen: NAD at rest Heart: RRR Lung: decreased breath sounds at the bases Abd: soft, nontender Ext: no edema CBC, BMP 09/17/18 06:15 09/17/18 06:15 Active Medications Acetaminophen (Tylenol -) 650 mg PO Q4H PRN PRN Reason: FEVER Last Admin: 09/16/18 05:59 Dose: 650 mg Acetaminophen (Ofirmev Injection -) 1,000 mg IVPB Q6H PRN PRN Reason: PAIN LEVEL 6-10 Enoxaparin Sodium (Lovenox -) 40 mg SQ DAILY [facility] Last Admin: 09/17/18 11:15 Dose: 40 mg Labetalol HCl (Normodyne -) 200 mg PO TID PRN PRN Reason: HYPERTENSION Last Admin: 09/17/18 03:15 Dose: 200 mg Oxycodone HCl (Roxicodone -) 5 mg PO Q6H PRN PRN Reason: PAIN LEVEL 7 - 10 Last Admin: 09/16/18 00:57 Dose: 5 mg Multivit/Folic Acid/Iron ( Vitamins (Sjr) -) 1 tab PO DAILY KEVIN Last Admin: 09/17/18 11:15 Dose: 1 tab ASSESSMENT AND PLAN: Post Pre-Elcampsia HTN - BP control - PO as tolerated - DVT prophylaxis - d/c planning
[2018-09-17 14:30] VITALS: BP 153/73; PULSE 78
--- NOTE | 2018-09-17 15:57 | PN ---
Physical Exam: SUBJECTIVE: No acute events. Mg gtt discontinued last night. Pt is wondering about discharge because she wants to go home to her kids. No complaints OBJECTIVE: Vital Signs Period Temp Pulse Resp BP Sys/Lyon Pulse Ox Last 24 Hr 98 F-98 F 61-80 16-24 123-163/69-97 96-97 GENERAL: NAD, Awake, alert, and fully oriented HEENT: NC/AT, ABEL, sclera anicteric, MMM NECK: No JVD LUNGS: CTA bilaterally. No wheezes, and no crackles. No accessory muscle use. HEART: RRR, normal S1 and S2 without murmur ABDOMEN: Soft, NT/ND, normoactive bowel sounds, no guarding, MUSCULOSKELETAL: No CVA tenderness. EXTREMITIES: 2+ DP pulses, warm, well-perfused. No calf tenderness. 1+ pitting peripheral edema to mid-leg. NEUROLOGICAL: drug and alcohol treatment specialist II-XII intact. Normal speech. Normal gait. Strength intact throughout. Sensation intact throughout. Patellar reflexes 2/4 PSYCHIATRIC: Cooperative. Good eye contact. Appropriate mood and affect. SKIN: Warm, dry, no rashes or lesions noted. Laboratory Results - last 24 hr 09/16/18 09/16/18 09/16/18 20:50 20:50 20:50 WBC 11.3 H RBC 2.69 L Hgb 8.5 L Hct 25.1 L MCV 93.1 MCH 31.6 MCHC 33.9 RDW 14.0 Plt Count 343 D MPV 7.4 L PTT (Actin FS) 28.1 Fibrinogen Sodium Potassium Chloride Carbon Dioxide Anion Gap BUN Creatinine Est GFR (CKD-EPI)AfAm Est GFR (CKD-EPI)NonAf Random Glucose Calcium Phosphorus Magnesium 4.3 H Total Bilirubin AST ALT Alkaline Phosphatase Total Protein Albumin 09/16/18 09/16/18 09/17/18 20:50 20:50 06:15 WBC 8.8 RBC 2.48 L Hgb 7.9 L Hct 23.0 L MCV 92.7 MCH 31.9 MCHC 34.4 RDW 14.2 Plt Count 311 MPV 7.3 L PTT (Actin FS) Fibrinogen 474.0 Sodium 138 Potassium 4.1 Chloride 102 Carbon Dioxide 29 Anion Gap 7 L BUN 11.5 Creatinine 0.8 Est GFR (CKD-EPI)AfAm 101.75 Est GFR (CKD-EPI)NonAf 87.79 Random Glucose 102 Calcium 8.5 Phosphorus Magnesium Total Bilirubin 0.3 AST 38 H ALT 43 Alkaline Phosphatase 106 Total Protein 6.3 L Albumin 2.6 L 09/17/18 06:15 WBC RBC Hgb Hct MCV MCH MCHC RDW Plt Count MPV PTT (Actin FS) Fibrinogen Sodium 138 Potassium 4.1 Chloride 103 Carbon Dioxide 29 Anion Gap 6 L BUN 10.5 Creatinine 0.9 Est GFR (CKD-EPI)AfAm 88.25 Est GFR (CKD-EPI)NonAf 76.14 Random Glucose 96 Calcium 8.3 L Phosphorus 4.0 Magnesium 2.7 H Total Bilirubin 0.4 AST 29 ALT 38 Alkaline Phosphatase 94 Total Protein 5.8 L Albumin 2.5 L ASSESSMENT/PLAN: Pre-Eclampsia HTN Asymptomatic Bacteruria --Magnesium sulfate gtt has been off for 12 hours --Serum Mg decreasing (today 2.7) --Pt's BP controlled with Labetolol 200mg PO --To continue on outpatient basis --Discussed with Dr. Dyson and Dr. Gabriel --Pt to be discharged today and has follow-up with Dr. Gabriel on outpatient basis; will continue Labetolol --Rx prescribed to [facility]. --Asymptomatic bacteruria likely colonization following delivering and does not require treatment; monitor for dysuria, polyuria signs and symptoms FEN: Fluids: Euvolemic Electrolyte abnormalities: None Nutrition: Regular diet PPX: DVT - early ambulation GI - Not indicated Dispo: D/C planning Case discussed with Harvey Lozada, and Klever Posey, - PGY-3 Visit type - Emergency Visit Emergency Visit: Yes ED Registration Date: 09/15/18 Care time: The patient presented to the Emergency Department on the above date and was hospitalized for further evaluation of their emergent condition. - New Patient This patient is new to me today: No - Critical Care Critical Care patient: No
== END 2018-09-17 15:08 | disposition home or self-care (01) | DRG 776 ==
LOC: JER 13:25 → JERBED 16:40 → JICU 20:26
PROVIDERS: ADMIT Obstetrics & Gynecology; ATTEND Obstetrics & Gynecology
DX: O13.5 Gestational [pregnancy-induced] hypertension without significant proteinuria, complicating the puerperium (principal); E83.42 Hypomagnesemia; O90.81 Anemia of the puerperium
CPT/HCPCS: 36415; 71046-TC-FY; 80053; 81003; 82550; 83735; 83880; 84100; 84436; 84443; 84484; 85025; 85027; 85384; 85610; 85730; 87086; 93005; 93010; 99284-25